=== PATIENT | male | born 2000 | race Caucasian/White ===

== ENCOUNTER 2024-02-28 14:32 | Outpatient (AMB) | payer OTHER, SELFPAY ==
[2024-02-28 14:43] VITALS: BP 136/76; PULSE 80; TEMP 36.7; O2SAT 98; BMI 44.4
--- NOTE | 2024-02-28 14:43 | MHC.OFFWIV ---
Intake Vital Signs 02/28/24 14:43 Height 5 ft 6 in Weight 275 lb BMI 44.4 BP 136/76 Blood Pressure Location Rt brachial Position Sitting Pulse 80 Pulse Source Pulse Oximeter Temp 98.0 F Temp Source Temporal Artery Scan Pulse Oximetry (%) 98 Intake Visit Reasons: EP right ear clogged Intake Note: pt is here for right ear clogged Patient Tobacco Use Status: Never used Tobacco Allergies From CEFTIN Allergy (Intermediate, Uncoded 02/28/24 14:43) RASH Do you need a note to return to daycare/school/sports/work: No HPI HPI Comments History of Present Illness Details 23 y/o male patient who presents to walk in clinic with c/o right ear feeling blocked x 2 days. Denies headaches, dizziness, N/V, vision or hearing changes. Recent URI - last week. PFSH Social History Patient Tobacco Use Status: Never used Tobacco Review of Systems Const All systems reviewed & are unremarkable except as noted in HPI and below Physical Exam Vital Signs: Last Vital Signs Temp 98.0 F 02/28/24 14:43 Pulse 80 02/28/24 14:43 BP 136/76 02/28/24 14:43 Pulse Ox 98 02/28/24 14:43 BMI result Body Mass Index 44.4 Const General: comfortable and no acute distress Nutritional Appearance: obese Orientation/consciousness: patient oriented x3 HEENT Head: Yes normocephalic Ears: hearing grossly normal bilaterally, external ears normal and TM abnormal bulging and with fluid behind the TM bilateral; not perforated and not retracted General nose exam: Abnormal mucous membranes and turbinates present pale Face and sinus: Yes sinuses nontender Mouth: moist mucous membranes Throat: Yes posterior oropharynx normal Neuro General: patient oriented x3, gait normal and moves all extremities Psych Speech and movement: Normal speech and movement present Assessment & Plan Assessment & Plan (1) Allergic rhinitis: Code(s): J30.9 - Allergic rhinitis, unspecified Qualifiers: Allergic rhinitis trigger: unspecified Allergic rhinitis seasonality: seasonal Qualified Code(s): J30.2 - Other seasonal allergic rhinitis Plan: -Fluid behind both TMs - Take medicines as directed. - RTC if not better. Medications: New fluticasone furoate 27.5 mcg/actuation (Flonase Sensimist) into each nostril 2 sprays intranasal DAILY 18.2 mL 0RF J30.2 - Other seasonal allergic rhinitis cetirizine (Zyrtec) 10 mg PO DAILY PRN 90 caps 0RF allergy symptoms J30.2 - Other seasonal allergic rhinitis Coding Level of Care Code New Pt Level 3 (67481) Diagnoses Seasonal allergic rhinitis, unspecified trigger J30.2 Allergic rhinitis trigger: unspecified Allergic rhinitis seasonality: seasonal Time Spent (min) 15
== END 2024-02-28 16:12 | disposition home or self-care (01) ==
PROVIDERS: Visit Provider Nurse Practitioner Family
DX: J30.2 Other seasonal allergic rhinitis (principal)
CPT/HCPCS: 99203

== ENCOUNTER 2024-09-26 09:48 | Outpatient (AMB) | payer OTHER, SELFPAY ==
--- NOTE | 2024-09-26 09:50 | MHC.OFFWIV ---
Intake Vital Signs 09/26/24 09:55 Weight 276 lb BP 126/70 Blood Pressure Location Lt brachial Position Sitting Pulse 78 Pulse Source Pulse Oximeter Pulse Oximetry (%) 97 Oxygen Delivery Method Room Air Intake Visit Reasons: PE rash under arm pit, knees Intake Note: Patient here for rash under arms, behind knees which started Monday. Patient Tobacco Use Status: Never used Tobacco Allergies From CEFTIN Allergy (Intermediate, Uncoded 09/26/24 09:54) RASH Do you need a note to return to daycare/school/sports/work: No HPI HPI Comments History of Present Illness Details History of Present Illness The patient is a 24-year-old male presenting with rashes. The patient reports experiencing pruritic rashes that began around the neck approximately six days ago, clearing up by the next day after treatment with [id number] hydrocortisone cream. Following this, new rashes developed on Monday, affecting various areas including both axillary regions, behind the knees, and the waistline. These areas coincide with regions prone to perspiration. There is no known new contact with other potential allergens aside from the recent introduction of a new detergent, namely Tide Pods, used for approximately one month. Previously, Gain was used as the detergent before switching to Tide Pods at his girlfriend's request. The patient suspects the detergent might be the cause of the contact dermatitis, especially given the placement of the rashes at sweat-prone locations. The patient acknowledges the mitigating role of the hydrocortisone cream in reducing scratching but reveals persistent itching and discomfort. Physical Exam General: Cooperative, healthy appearing, comfortable, no acute distress and well developed Orientation: Patient oriented x3 Limitations: No limitations Head: Normal to inspection Ears: Hearing grossly normal bilaterally Nose: Normal external nose present Face and sinus: normal facial exam Eyes: Appearance normal, both eyes and all related structures Neck: Normal visual inspection and Yes full ROM Respiratory: Normal respiratory effort and able to speak in complete sentences. Skin: erythematous, confuent raised rash patches located around the neck, near bilateral armpits, posterior bilateral knees, and around the waistline. Neuro: Patient oriented x3 Extremities: Normal to inspection [facility] Social History Patient Tobacco Use Status: Never used Tobacco Review of Systems Const All systems reviewed & are unremarkable except as noted in HPI and below Physical Exam Vital Signs: Last Vital Signs Pulse 78 09/26/24 09:55 BP 126/70 09/26/24 09:55 Pulse Ox 97 09/26/24 09:55 Oxygen Delivery Method Room Air 09/26/24 09:55 Assessment & Plan Assessment & Plan (1) Contact dermatitis: Code(s): L25.9 - Unspecified contact dermatitis, unspecified cause Qualifiers: Contact dermatitis type: irritant Contact dermatitis trigger: detergents Qualified Code(s): L24.0 - Irritant contact dermatitis due to detergents Plan: - Initiate treatment with an oral corticosteroid, specifically prednisone, with a taper dose over 15 days to manage inflammation associated with contact dermatitis. - Recommendation to switch to a hypoallergenic detergent, such as All Free & Clear, to prevent further allergen exposure. - Prescribe hydroxyzine 25 mg to be taken at night to alleviate pruritus and support restful sleep. - Advisement to continue using topical hydrocortisone cream to manage localized symptoms. - Emphasize the importance of laundering all clothing in the new detergent to remove residues that may perpetuate dermatitis symptoms. Send prescriptions for prednisone and hydroxyzine to the patient's preferred pharmacy, [facility] on [facility]. Patient was informed and verbally consented to the use of an ambient scribe for clinic note documentation during this visit. Medications: New prednisone On days 1 through 5 take 2 tablets with breakfast; On days 6 through 10 take 1 tablet with breakfast; On days 11 through 15 take 1/2 tablet with breakfast 20 mg PO QAM 18 tabs 0RF hydroxyzine HCl 25 mg PO BEDTIME 14 tabs 0RF Coding Level of Care Code New Pt Level 3 (42046) Diagnoses Irritant contact dermatitis due to detergent L24.0 Contact dermatitis type: irritant Contact dermatitis trigger: detergents
[2024-09-26 09:55] VITALS: BP 126/70; PULSE 78; O2SAT 97
== END 2024-09-26 10:32 | disposition home or self-care (01) ==
PROVIDERS: Visit Provider Physician Assistant
DX: L24.0 Irritant contact dermatitis due to detergents (principal)